=== PATIENT | female | born 1995 | race African-American/Black ===

== ENCOUNTER 2016-10-31 16:05 | Emergency (ER) | payer MEDICAID, OTHER ==
[2016-10-31] MEDS ORDERED: ONDANSETRON ODT 4 MG ONE (17:31)
[2016-11-03 16:38] LABS: ASPARTATE AMINO TRANSFERASE 15 U/L (15-37); BLOOD UREA NITROGEN 13 mg/dL (7-18)
== END 2016-10-31 22:11 ==
LOC: ED 16:05
DX: O26.891 Other specified pregnancy related conditions, first trimester (principal); Z3A.09 9 weeks gestation of pregnancy; M54.5 Low back pain; R11.0 Nausea
CPT/HCPCS: 36415; 76801; 80048; 80076; 81003; 82040; 84702; 85025; 87086; 87210; 87491; 87591; 87808

== ENCOUNTER 2017-02-24 11:56 | Emergency (ER) | payer OTHER, MEDICAID ==
[~2017-02-24] VITALS: Ht 170.2 cm; Wt 85.3 kg
[2017-02-24 12:01] VITALS: BP 126/79
[2017-02-24] MEDS ORDERED: ACETAMINOPHEN 325 MG TABLET ONE (12:23)
[2017-02-24] MEDS ORDERED: ACETAMINOPHEN 325 MG TABLET PO ONE (12:30)
== END 2017-02-24 13:10 | disposition home or self-care (01) ==
LOC: ED 13:08
DX: O98.512 Other viral diseases complicating pregnancy, second trimester (principal); Z3A.25 25 weeks gestation of pregnancy
CPT/HCPCS: 99282

== ENCOUNTER 2018-07-07 09:33 | Emergency (ER) | payer OTHER, MEDICAID ==
[~2018-07-07] VITALS: Ht 170.2 cm; Wt 88.1 kg
[~2018-07-07 09:33] MED LIST: IBUP-1222 PO; OXYC15TA75 PO
[2018-07-07 09:35] VITALS: BP 125/69
[2018-07-07] MEDS ORDERED: ONDANSETRON ODT 4 MG ONE (10:34)
[2018-07-07] MEDS ORDERED: MAALOX/HYOSCYAMINE/LIDOCAINE 45 ML BTL ONE (10:35)
[2018-07-07] MEDS ORDERED: ONDANSETRON ODT 4 MG PO ONE (11:00)
[2018-07-07] MEDS ORDERED: MAALOX/HYOSCYAMINE/LIDOCAINE 45 ML BTL PO ONE (11:00)
--- NOTE | 2018-07-07 11:20 | NUR ---
Patient/Caregiver given discharge instructions and they have confirmed that they understand the instructions. Patient ambulatory with steady gait.
== END 2018-07-07 11:31 | disposition home or self-care (01) ==
LOC: ED 11:04
DX: H10.023 Other mucopurulent conjunctivitis, bilateral (principal); J00 Acute nasopharyngitis [common cold]; G43.909 Migraine, unspecified, not intractable, without status migrainosus; Z88.1 Allergy status to other antibiotic agents; Z88.6 Allergy status to analgesic agent
CPT/HCPCS: 71046; 99283; Q0162